=== PATIENT | male | born 1990 | race Caucasian/White ===

== ENCOUNTER 2020-03-30 02:04 | Emergency (ER) | payer BC, SELFPAY ==
[2020-03-30 02:05] VITALS: BP 152/85; PULSE 102; RESP 16; TEMP 36.8; O2SAT 98; BMI 25.7
--- NOTE | 2020-03-30 02:21 | XR_ITS ---
PROCEDURE: XR KNEE LT 3V CLINICAL INDICATION: LEFT KNEE PAIN Pain and swelling COMPARISON: No exams were available for comparison FINDINGS: No fracture or dislocation. No lytic or blastic change. There is normal mineralization. The joint spaces are well-preserved. No significant degenerative/arthritic changes. No erosive changes evident. Other findings:None. IMPRESSION: No acute findings. Dictated by: Abdelrahman Hess MD 03/30/2020 05:32 Abdelrahman Hess MD in [place] 03/30/2020 05:32
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
[2020-03-30 03:23] VITALS: BP 146/92; PULSE 87; RESP 16; TEMP 36.8; O2SAT 97
== END 2020-03-30 03:25 | disposition home or self-care (01) ==
PROVIDERS: Emergency Provider Emergency Medicine; PCP Family Medicine
DX: M23.92 Unspecified internal derangement of left knee (principal); X50.1XXA Overexertion from prolonged static or awkward postures, initial encounter; Y93.55 Activity, bike riding; Y92.89 Other specified places as the place of occurrence of the external cause
CPT/HCPCS: 73562; 99282